=== PATIENT | male | born 1980 | race Caucasian/White ===

== ENCOUNTER 2018-02-19 01:10 | Emergency (ER) | payer OTHER ==
[~2018-02-19] VITALS: Ht 188 cm; Wt 190.0 kg
[2018-02-19 01:13] VITALS: BP 135/81
[2018-02-19] MEDS ORDERED: LIDOcaine 1.5% w/epinephrine 1:200,000 5ml ampul IJ ONE (02:30)
[2018-02-19] MEDS ORDERED: HYDR-569 PO (03:16)
[2018-02-19] MEDS ORDERED: IBUP-1986 PO (03:16)
== END 2018-02-19 03:29 | disposition home or self-care (01) ==
LOC: ER 01:11
DX: S21.012A Laceration without foreign body of left breast, initial encounter (principal); F12.90 Cannabis use, unspecified, uncomplicated; Z88.2 Allergy status to sulfonamides; Z79.899 Other long term (current) drug therapy; W45.8XXA Other foreign body or object entering through skin, initial encounter; Y93.89 Activity, other specified; Y92.89 Other specified places as the place of occurrence of the external cause; Y99.8 Other external cause status
CPT/HCPCS: 12004; 71046; 99284; A6223; A6446; A6449; J3490